=== PATIENT | female | born 1990 | race Caucasian/White ===

== ENCOUNTER 2017-05-17 13:52 | Emergency (ER) | payer SELFPAY ==
[2017-05-17] MEDS ORDERED: MORPHINE IV ONE (14:39)
[2017-05-17] MEDS ORDERED: ZOFRAN IV ONE (14:39)
--- NOTE | 2017-05-17 14:44 | Emergency Department Report ---
ED Back Pain/Injury HPI - General Chief Complaint: Back Pain/Injury Stated Complaint: BACK PAIN Time Seen by Provider: 05/17/17 14:30 Source: patient, EMS Limitations: No Limitations - History of Present Illness Initial Comments: Patient is a 26 years old female with no significant past medical history presented today was back pain started this morning , mainly to lumbar area not radiating. Patient denied any fever numbness tingling sensation or weakness no bowel or bladder incontinence. Patient stated that she's been working out for the last 3 days MD Complaint: back pain, back injury -: This morning Similar Symptoms Previously: No Place: home Radiation: none Severity: severe Severity scale (0 -10): 8 Quality: sharp Consistency: intermittent Improves With: immobilization Worsens With: movement Context: while lifting, turning/twisting, bending, other (working out) Associated Symptoms: denies other symptoms - Related Data Allergies Allergy/AdvReac Type Severity Reaction Status Date / Time No Known Allergies Allergy Unverified 05/17/17 14:15 ED Review of Systems ROS: Stated complaint: BACK PAIN Other details as noted in HPI Comment: All other systems reviewed and negative Constitutional: denies: chills, fever ENT: denies: throat pain, dental pain Respiratory: denies: shortness of breath Cardiovascular: denies: chest pain, palpitations Gastrointestinal: denies: abdominal pain, nausea, vomiting, diarrhea Genitourinary: denies: urgency, dysuria, frequency Neurological: denies: headache, weakness, numbness ED Past Medical Hx - Past Medical History Previous Medical History?: No - Surgical History Past Surgical History?: Yes Additional Surgical History: X 2 - Social History Smoking Status: Current Some Day Smoker Substance Use Type: Alcohol ED Physical Exam - General Limitations: No Limitations General appearance: alert, in no apparent distress - Head Head exam: Present: atraumatic, normocephalic, normal inspection - Eye Eye exam: Present: normal appearance, PERRL - ENT ENT exam: Present: normal exam, mucous membranes moist - Neck Neck exam: Present: normal inspection, full ROM. Absent: tenderness, meningismus, lymphadenopathy, thyromegaly - Respiratory Respiratory exam: Present: normal lung sounds bilaterally. Absent: rales, rhonchi, chest wall tenderness, accessory muscle use, decreased breath sounds, prolonged expiratory - Cardiovascular Cardiovascular Exam: Present: regular rate, normal rhythm, normal heart sounds - GI/Abdominal GI/Abdominal exam: Present: soft, normal bowel sounds. Absent: distended, tenderness, guarding, rebound, rigid, organomegaly, mass, bruit, pulsatile mass , hernia - Extremities Exam Extremities exam: Present: normal inspection, full ROM, normal capillary refill. Absent: tenderness, pedal edema, joint swelling, calf tenderness - Back Exam Back exam: Present: normal inspection, tenderness, muscle spasm, paraspinal tenderness, vertebral tenderness. Absent: CVA tenderness (R), CVA tenderness (L ) - Neurological Exam Neurological exam: Present: alert, oriented X3, CN II-XII intact, normal gait, reflexes normal. Absent: motor sensory deficit - Skin Skin exam: Present: warm, intact, normal color ED Course Vital Signs 05/17/17 05/17/17 14:10 15:15 Temperature 97.5 F L Pulse Rate 69 Respiratory 18 18 Rate Blood Pressure 115/78 Blood Pressure 92/66 [Left] O2 Sat by Pulse 98 98 Oximetry - Reevaluation(s) Reevaluation #1: 05/17/17 17:18 Patient stated that she is feeling much better. Advised to follow up with her primary care physician and bedrest. ED Medical Decision Making - Lab Data Result diagrams: 05/17/17 15:24 05/17/17 15:24 - Radiology Data Radiology results: image reviewed X-ray lumbar unremarkable - Medical Decision Making Patient stated that she is feeling better. Patient denied any weakness numbness tingling sensation no bowel or bladder incontinence. Critical care attestation.: If time is entered above; I have spent that time in minutes in the direct care of this critically ill patient, excluding procedure time. ED Disposition Clinical Impression: Back pain Disposition: DC-01 TO HOME OR SELFCARE Is pt being admited?: No Condition: Stable Instructions: Low Back Strain (ED), Acute Low Back Pain (ED)
[2017-05-17] MEDS ORDERED: NACL 0.9% 1000 ML 1,000 ML ONE (15:13)
[2017-05-17] MEDS ORDERED: NACL 0.9% 1000 ML 1,000 ML IV ONE ×2 (15:13→16:57)
[2017-05-17 16:15] LABS: Hematocrit 34.7 % (30.3-42.9); Hemoglobin 11.6 gm/dl (10.1-14.3); Mean Corpuscular HGB Conc 33 % (30-34); Mean Corpuscular Hemoglobin 29 pg (28-32); Mean Corpuscular Volume 85 fl (79-97); Platelet Count 212 K/mm3 (140-440); Red Blood Count 4.07 M/mm3 (3.65-5.03); Red Cell Distribution Width 15.9 % (13.2-15.2); White Blood Count 9.1 K/mm3 (4.5-11.0)
[2017-05-17 16:26] LABS: Anion Gap 16 mmol/L; BUN/Creatinine Ratio 20; Blood Urea Nitrogen 8 mg/dL (7-17); Calcium 8.3 mg/dL (8.4-10.2); Carbon Dioxide 24 mmol/L (22-30); Chloride 101.1 mmol/L (98-107); Glucose 84 mg/dL (65-100); Potassium 3.5 mmol/L (3.6-5.0); Sodium 138 mmol/L (137-145)
[2017-05-17 16:28] LABS: Bacteria,Urine 1+ /HPF (Negative); Bilirubin,Urine NEG (Negative); Blood,Urine SM (Negative); Ketones,Urine 20 mg/dL (Negative); Leukocyte Esterase,Urine NEG (Negative); Mucus,Urine FEW /HPF; Nitrite,Urine NEG (Negative); Protein,Urine <15 mg/dL mg/dL (Negative); Urobilinogen,Urine < 2.0 mg/dL (<2.0)
[2017-05-17] MEDS ORDERED: TORADOL IV ONE (17:18)
--- NOTE | 2017-05-17 17:36 | XRay Report ---
FINAL REPORT EXAM: XR SPINE LUMBOSACRAL 2-3V HISTORY: BACK INJURY TECHNIQUE: Lumbar spine 3 views PRIORS: None. FINDINGS: Vertebral bodies demonstrate normal height and alignment. The disc spaces are within normal limits. There is no evidence of spondylolisthesis. Transverse and spinous processes are intact SI joints are unremarkable. IMPRESSION: Negative lumbar spine series
[2017-05-17 18:37] VITALS: BP 103/72
== END 2017-05-17 18:38 | disposition home or self-care (01) ==
LOC: ED 13:52
DX: M54.5 Low back pain (principal); F17.210 Nicotine dependence, cigarettes, uncomplicated
CPT/HCPCS: 36415; 72100; 80048; 81001; 83690; 84702; 85027; 96361; 96374; 96375; 99284; J1885; J2270; J2405; J7030